=== PATIENT | female | born 1965 | race Caucasian/White ===

== ENCOUNTER 2019-03-29 12:50 | Emergency (ER) | payer BC ==
--- NOTE | 2019-03-29 13:24 | RAD ---
LEFT FOOT THREE VIEWS: HISTORY: Injury. Left foot pain. FINDINGS: There is a plantar calcaneal spur. No acute fracture or dislocation is identified. POS: [facility]
== END 2019-03-29 13:25 | disposition home or self-care (01) ==
LOC: MADERS 12:50
DX: M25.475 Effusion, left foot (principal); I47.1 Supraventricular tachycardia; I49.9 Cardiac arrhythmia, unspecified; F32.9 Major depressive disorder, single episode, unspecified; Z79.899 Other long term (current) drug therapy